=== PATIENT | female | born 1995 | race Caucasian/White ===

== ENCOUNTER 2018-03-15 19:04 | Inpatient (IN) ==
[2018-03-15 20:08] LABS: Baso # (Auto) 0.1 th/mm3 (0.0-0.2); Baso % (Auto) 0.4 % (0.0-2.0); Eos # (Auto) 0.1 th/mm3 (0.0-0.4); Eos % (Auto) 0.6 % (0.0-4.0); Hematocrit 31.9 % (35.0-46.0); Hemoglobin 10.6 gm/dL (11.6-15.3); Lymph # (Auto) 2.3 th/mm3 (1.0-4.8); Lymph % (Auto) 18.6 % (9.0-44.0); Mean Corpuscular HGB Conc 33.2 % (32.0-36.0); Mean Corpuscular Volume 81.3 fL (80.0-100.0); Mean Platelet Volume 7.6 fL (7.0-11.0); Mono # (Auto) 1.1 th/mm3 (0.0-0.9); Mono % (Auto) 8.9 % (0.0-8.0); Neut # (Auto) 8.8 th/mm3 (1.8-7.7); Neut % (Auto) 71.5 % (16.0-70.0); Platelet Count 297 th/mm3 (150-450); Red Blood Count 3.92 mil/mm3 (4.00-5.30); Red Cell Distribution Width 12.7 % (11.6-17.2); White Blood Count 12.3 th/mm3 (4.0-11.0)
[2018-03-15 20:16] LABS: Amphetamine Urine With Conf Neg (Neg); Benzodiazepine Urine With Conf Neg (Neg)
[2018-03-15 20:20] LABS: Amorphous Sediment,Urine Rare /hpf; Bacteria,Urine Moderate /hpf; Bilirubin,Urine Negative (Negative); Clarity,Urine Hazy (Clear); Color,Urine Yellow (Yellw/Straw); Glucose,Urine (UA) Negative (Negative); Leukocyte Esterase,Urine Small (Negative); Mucus,Urine Few /lpf (Occasional); Nitrite,Urine Negative (Negative); Squamous Epithelial Cell,Urine 8 /hpf (0-5)
[2018-03-15] MEDS ORDERED: Sod Chloride 0.9% Inj 1,000 ML IV.CONT PRN (20:27)
[2018-03-15] MEDS ORDERED: fentaNYL Citrate Inj 100 MCG/2 ML Ampul IV.PUSH PRN ×2 (20:27)
[2018-03-15] MEDS ORDERED: Sodium Chlor 0.9% Inj 500 ML IV.SIG PRN (20:27)
[2018-03-15] MEDS ORDERED: Oxytocin 30 Units/500ml Premix 30 UNITS/500 ML BAG IV.SIG ONE (20:27)
[2018-03-15] MEDS ORDERED: Citric Acid/Sodium Citrate Liq 30 ML UDC PO SCH (20:30)
[2018-03-15] MEDS ORDERED: Sod Chloride 0.9% Inj 1,000 ML IRRIGATION SCH (20:30)
[2018-03-16] MEDS ORDERED: Oxytocin 30 Units/500ml Premix 30 UNITS/500 ML BAG IV.SIG PRN (01:52)
[2018-03-16] MEDS ORDERED: fentaNYL 2MCG-Bupiv 0.125% Epi 150 ML EPIDURAL ONE (07:55)
[2018-03-16] MEDS ORDERED: Lidocaine PF 1% Inj 5 ML Vial ONE (07:56)
[2018-03-16] MEDS ORDERED: Lidocaaine 1.5%/Epinephrine 1:200,000 PF Inj 5 ML Amp ONE (07:56)
--- NOTE | 2018-03-16 08:06 | P.OBLABOR ---
Subjective Interval history: pt on pit 4 Objective Vital Signs: Vital Signs - 8 hr 03/16/18 00:57 03/16/18 01:55 03/16/18 03:05 Temperature 97.4 F L 97.8 F Pulse Rate 108 H 70 86 Respiratory Rate 18 Blood Pressure 106/83 109/72 03/16/18 03:15 03/16/18 03:30 03/16/18 04:01 Temperature Pulse Rate 102 H 101 H Respiratory Rate 18 Blood Pressure 126/82 92/78 L 03/16/18 04:30 03/16/18 05:01 03/16/18 05:30 Temperature Pulse Rate 65 71 76 Respiratory Rate Blood Pressure 107/56 L 106/47 L 118/69 03/16/18 06:03 03/16/18 06:30 03/16/18 07:01 Temperature Pulse Rate 74 91 H 88 Respiratory Rate 18 Blood Pressure 114/59 L 116/68 118/66 03/16/18 07:15 Temperature 98.3 F Pulse Rate 76 Respiratory Rate 20 Blood Pressure 106/60 Objective: Pelvic Exam: Cervix: [-] Dilatation: [-] 3 Effacement: [-] 50 Station: [-] -1 Presentation: [-] Membranes: [intact or ruptured] arom clear Uterine Contractions: [-] q3-4 FHT's: Category: [-] 1 Baseline: [-] Reactive: [-] R Variability: [-] Decels: [-] Weeks Gestation: 39 Patient Started Active Labor: Yes Active Labor Start Date: 03/16/18 Active Labor Start Time: 08:03 Medical Induction of Labor: Yes Medical Induction Start Date: 03/15/18 Medical Induction Start Time: 21:00 Artificial Rupture of Membrane: Yes Artificial ROM Date: 03/16/18 Artificial ROM Time: 08:04 Assessment and Plan - Diagnosis (1) Code(s): Z34.90 - Encounter for supervision of normal , unspecified, unspecified trimester Status: Acute - Plan IUP at 39 2/7 LGA s/p cervidil on pit, arom GBS neg, for epid anticipate Discharge Planning: day 1-2 PP - Attending Attestation pt seen by me
--- NOTE | 2018-03-16 09:19 | MH ---
cc: Hanna Baugh MD DATE OF ADMISSION: 03/15/2018 HISTORY OF PRESENT ILLNESS: She is 22 years old, 2, para 1; intrauterine at 39 weeks and 2 days, admitted for suspected large for gestational age, induction of labor. care has been with [facility], uncomplicated. GBS was negative; GCT was normal. PAST OBSTETRICAL HISTORY: She has a history of one vaginal delivery in 2014; 7 pounds 12 ounces. PAST GYNECOLOGIC HISTORY: She had HPV in 2009. Pap smear was negative in September 2017. PAST MEDICAL HISTORY: She denies hypertension, diabetes or asthma. She has a history of hypothyroidism and is on no medication. PAST SURGICAL HISTORY: She denies. SOCIAL HISTORY: She denies toxic habits. MEDICATIONS: She takes vitamin. ALLERGIES: SHE HAS NO KNOWN DRUG ALLERGIES. PHYSICAL EXAMINATION: VITAL SIGNS: Stable. She is afebrile. Blood pressure 114/60. She is 182 pounds. HEAD, HEART, CHEST, LUNG: Within normal limits. ABDOMEN: Soft, nontender, gravid. PELVIC: She is 1, 50, -1. EXTREMITIES: No edema, cyanosis, or clubbing. ASSESSMENT AND PLAN: She is 22 years old, 2, para 1; intrauterine at 39 weeks 2 days, admitted for set Cervidil induction. She is nonimmune to rubella and varicella. MD JAYY Johnson/diana , 08:45 AM , 08:51 AM
[2018-03-16] MEDS ORDERED: fentaNYL 2MCG-Bupiv 0.125% Epi 150 ML EPIDURAL PRN (09:42)
[2018-03-16] MEDS ORDERED: fentaNYL Citrate Inj 100 MCG/2 ML Ampul EPIDURAL ONE (09:42)
--- NOTE | 2018-03-16 14:34 | P.OBDELI ---
Weeks Gestation: 39 Patient Started Active Labor: Yes Active Labor Start Date: 03/16/18 Active Labor Start Time: 07:30 Medical Induction of Labor: Yes Medical Induction Start Date: 03/15/18 Medical Induction Start Time: 21:00 Artificial Rupture of Membrane: Yes Artificial ROM Date: 03/16/18 Artificial ROM Time: 07:30 Anesthesia: Epidural Episiotomy: none Vaginal Delivery: Normal Presentation: Occiput anterior, Compound Nuchal Cord: None Delayed Cord Clamping (45 sec): Yes Placenta: Spontaneous delivery Laceration: 1 deg Repair: Chromic interrupted Estimated blood loss (mL): 250 Infant: Female
[2018-03-16] MEDS ORDERED: Witch Hazel 50%/Glyderin 12.5% 40 Pad Jar RECTAL PRN (14:35)
[2018-03-16] MEDS ORDERED: Benzocaine 20% Top Spray 60 ML Can TOPICAL PRN (14:35)
[2018-03-16] MEDS ORDERED: Oxytocin 30 Units/500ml Premix 30 UNITS/500 ML BAG IV.CONT PRN (14:35)
[2018-03-16] MEDS ORDERED: Bisacodyl 10 MG Supp RECTAL PRN (14:35)
[2018-03-16] MEDS ORDERED: Acetaminophen 325 MG Tablet PO PRN (14:35)
[2018-03-16] MEDS ORDERED: Naloxone Inj 0.4 MG/ML Vial IV.PUSH PRN (14:35)
[2018-03-16] MEDS ORDERED: Zolpidem Tartrate 5 MG Tablet PO PRN (14:35)
[2018-03-16] MEDS ORDERED: Diphtheria/Tetanus/Pertussis Vaccine Inj 0.5 ML Syringe IM ONE (16:00)
[2018-03-16] MEDS ORDERED: Measles/Mumps/Rubella Vaccine Inj 0.5 ML Vial SQ ONE (16:00)
[2018-03-17] MEDS: Prenatal Vit/Ca/Iron/Folic Acid Tablet PO SCH (09:02)
[2018-03-17] MEDS: Senna/Docusate Sodium 8.6/50 MG Tablet PO SCH ×2 (09:04→21:56)
--- NOTE | 2018-03-17 09:47 | P.PNOB ---
Subjective Post day: 1 Interval history: doing well, no complaints, Objective Vital Signs/I&O: Vital Signs 03/16/18 09:55 03/16/18 10:01 03/16/18 10:25 Temperature Pulse Rate 90 91 H 83 Respiratory Rate Blood Pressure 99/50 L 103/54 L 115/66 03/16/18 11:00 03/16/18 11:25 03/16/18 11:31 Temperature 98.4 F Pulse Rate 92 H 76 87 Respiratory Rate 16 Blood Pressure 86/54 L 116/60 118/60 03/16/18 11:55 03/16/18 11:57 03/16/18 12:35 Temperature 98.0 F Pulse Rate 73 95 H Respiratory Rate 18 Blood Pressure 112/62 116/73 03/16/18 12:55 03/16/18 13:00 03/16/18 13:35 Temperature 98.1 F Pulse Rate 80 95 H 97 H Respiratory Rate 16 Blood Pressure 116/56 L 123/71 116/61 03/16/18 13:55 03/16/18 14:00 03/16/18 14:33 Temperature 97.9 F Pulse Rate 91 H 103 H Respiratory Rate 18 Blood Pressure 130/71 121/73 03/16/18 14:35 03/16/18 14:45 03/16/18 15:00 Temperature 98.1 F Pulse Rate 95 H 96 H Respiratory Rate 20 20 16 Blood Pressure 116/62 116/75 03/16/18 15:16 03/16/18 15:30 03/16/18 15:46 Temperature Pulse Rate 89 86 79 Respiratory Rate 18 18 16 Blood Pressure 99/63 L 116/67 113/63 03/16/18 16:00 03/16/18 16:50 03/16/18 20:00 Temperature 97.7 F 97.5 F L Pulse Rate 89 84 79 Respiratory Rate 16 20 18 Blood Pressure 122/76 107/67 109/66 03/17/18 08:00 Temperature 97.8 F Pulse Rate 76 Respiratory Rate 18 Blood Pressure 113/78 Intake & Output 03/16/18 03/17/18 03/17/18 18:59 06:59 18:59 Intake Total 1000 / 1000 Balance 1000 / 1000 Intake: IV 1000 / 1000 LR 1000 mL Inj 1,000 ML @ 125 1000 / 1000 mls/hr IV.CONT .Q8H [facility] Rx#: [id number] Result Diagrams: 03/15/18 19:48 Objective Remarks: GENERAL: Well-nourished, well-developed patient. CARDIOVASCULAR: Regular rate and rhythm without murmurs, gallops, or rubs. RESPIRATORY: Breath sounds equal bilaterally. No accessory muscle use. ABDOMEN/GI: Abdomen soft, non-tender. Fundus: Firm, non-tender at umbilicus. GENITOURINARY: Light to moderate bleeding. EXTREMITIES: No cyanosis or edema, non-tender, without signs of DVT. Medications and IVs: Active Medications Acetaminophen (Tylenol) 650 mg PO Q4H PRN PRN Reason: PAIN SCALE 1 TO 2 Al Hydroxide/Mg Hydroxide (Milk Of Magnesia Liq) 30 ml PO Q12H PRN PRN Reason: Mild Constipation Benzocaine (Americaine 20% Top [place]) 1 spray TOPICAL Q4H PRN PRN Reason: For Perineum Discomfort Bisacodyl (Dulcolax Supp) 10 mg RECTAL DAILY PRN PRN Reason: SEVERE CONSITIPATION Citric Acid/Sodium Citrate (Sodium Citrate/Citric Acid Liq) 30 ml PO [employer] [facility] Stop: 03/19/18 20:29 Last Admin: 03/16/18 03:22 Dose: 30 ml Fentanyl Citrate (Fentanyl Inj) 50 mcg IV.PUSH Q1H PRN PRN Reason: Pain Scale 3 - 5 Fentanyl Citrate (Fentanyl Inj) 100 mcg IV.PUSH Q1H PRN PRN Reason: PAIN SCALE 6 TO 10 Last Admin: 03/16/18 04:19 Dose: 100 mcg Lactated Ringer's (Lr 1000 Ml Inj) 1,000 mls @ 125 mls/hr IV.CONT .Q8H [facility] Last Admin: 03/16/18 14:59 Dose: Not Given Lactated Ringer's (Lr 1000 Ml Inj) 1,000 mls @ 125 mls/hr IV.CONT .Q8H [facility] Last Admin: 03/16/18 15:01 Dose: 125 mls/hr Lactated Ringer's (Lr 1000 Ml Inj) 1,000 mls @ 3,000 mls/hr IV.SIG UNSCH PRN PRN Reason: compromise or epidural Last Admin: 03/16/18 07:35 Dose: 3,000 mls/hr Sodium Chloride (Ns Inj) 500 mls @ 1,000 mls/hr IV.SIG UNSCH PRN PRN Reason: SEE LABEL COMMENTS Sodium Chloride (Ns Inj) 1,000 mls @ 100 mls/hr IV.CONT .Q10H PRN PRN Reason: SEE LABEL COMMENTS Oxytocin (Pitocin 30 Units/Ns 500 Ml Premix) 30 units in 500 mls @ 1 mls/hr IV.SIG TITRATE PRN; Protocol PRN Reason: For induction of labor Last Admin: 03/16/18 03:16 Dose: 1 milliunit/min, 1 mls/hr Fentanyl/Bupivacaine/Sodium Chlor (Fentanyl 2 Mcg-Bupiv 0.125% Epi) 150 mls @ 11 mls/hr EPIDURAL PRN PRN PRN Reason: for Labor Pain Oxytocin (Pitocin 30 Units/Ns 500 Ml Premix) 30 units in 500 mls @ 100 mls/hr IV.CONT UNSCH PRN PRN Reason: Heavy bleeding Ibuprofen (Motrin) 800 mg PO Q8H PRN PRN Reason: For Cramping Last Admin: 03/17/18 09:02 Dose: 800 mg Lactulose (Lactulose Liq) 30 ml PO DAILY PRN PRN Reason: SEVERE CONSITIPATION Lidocaine HCl (Xylocaine 1% Inj) 0.1 ml I-DERMAL PRN PRN PRN Reason: For IV start Stop: 03/18/18 20:26 Lidocaine HCl (Xylocaine 1% Inj) 10 ml INFILTRATN PRN PRN PRN Reason: For episiotomy repair Stop: 03/17/18 20:26 Mineral Oil (Muri-Lube Oil) 10 ml TOPICAL PRN PRN PRN Reason: PRN perineal massage Naloxone HCl (Narcan Inj) 0.1 mg IV.PUSH Q2M PRN PRN Reason: for opiate reversal Ondansetron HCl (Zofran Inj) 4 mg IV.PUSH Q6H PRN PRN Reason: NAUSEA OR VOMITING Last Admin: 03/16/18 00:45 Dose: 4 mg Ondansetron HCl (Zofran Odt) 4 mg PO Q6H PRN PRN Reason: NAUSEA OR VOMITING Vit/Calcium/Iron/Folic Ac (Stuartnatal Plus 3) 1 tab PO DAILY TIARRA Last Admin: 03/17/18 09:02 Dose: 1 tab Senna/Docusate Sodium (Daphney-Colace) 1 tab PO BID [facility] Last Admin: 03/17/18 09:04 Dose: 1 tab Sennosides (Senokot) 17.2 mg PO Q12H PRN PRN Reason: Moderate Constipation Sodium Chloride (Ns Flush) 2 ml IV.FLUSH PRN PRN PRN Reason: FLUSH AFTER USING IV ACCESS Sodium Chloride (Ns Flush) 2 ml IV.FLUSH BID TI[facility] Witch Angelica/Glycerin (Tucks Pads) 1 applicatio RECTAL QID PRN PRN Reason: HEMORRHOIDS Zolpidem Tartrate (Ambien) 5 mg PO HS PRN PRN Reason: SLEEP Assessment and Plan - Diagnosis (1) Code(s): Z34.90 - Encounter for supervision of normal , unspecified, unspecified trimester Status: Acute (2) Vaginal delivery Code(s): O80 - Encounter for full-term uncomplicated delivery Status: Acute - Plan s/p , PPD #1 d/c home in am Discharge Planning: day 1-2 PP - Attending Attestation pt seen by me
[2018-03-18 07:44] VITALS: BP 110/67; PULSE 69; RESP 16; TEMP 98.2
[2018-03-18] MEDS: Prenatal Vit/Ca/Iron/Folic Acid Tablet PO SCH (09:09)
[2018-03-18] MEDS: Senna/Docusate Sodium 8.6/50 MG Tablet PO SCH (09:10)
--- NOTE | 2018-03-18 10:01 | P.PNOB ---
Subjective Post day: 2 Interval history: doing well, ready for discharge Objective Vital Signs/I&O: Vital Signs 03/17/18 20:00 03/18/18 07:25 Temperature 98.0 F 98.2 F Pulse Rate 70 69 Respiratory Rate 18 16 Blood Pressure 107/71 110/67 Result Diagrams: 03/15/18 19:48 Objective Remarks: GENERAL: Well-nourished, well-developed patient. CARDIOVASCULAR: Regular rate and rhythm without murmurs, gallops, or rubs. RESPIRATORY: Breath sounds equal bilaterally. No accessory muscle use. ABDOMEN/GI: Abdomen soft, non-tender. Fundus: Firm, non-tender at umbilicus. GENITOURINARY: Light to moderate bleeding. EXTREMITIES: No cyanosis or edema, non-tender, without signs of DVT. Medications and IVs: Active Medications Acetaminophen (Tylenol) 650 mg PO Q4H PRN PRN Reason: PAIN SCALE 1 TO 2 Al Hydroxide/Mg Hydroxide (Milk Of Magnesia Liq) 30 ml PO Q12H PRN PRN Reason: Mild Constipation Benzocaine (Americaine 20% Top [place]) 1 spray TOPICAL Q4H PRN PRN Reason: For Perineum Discomfort Bisacodyl (Dulcolax Supp) 10 mg RECTAL DAILY PRN PRN Reason: SEVERE CONSITIPATION Citric Acid/Sodium Citrate (Sodium Citrate/Citric Acid Liq) 30 ml PO [employer] [facility] Stop: 03/19/18 20:29 Last Admin: 03/16/18 03:22 Dose: 30 ml Fentanyl Citrate (Fentanyl Inj) 50 mcg IV.PUSH Q1H PRN PRN Reason: Pain Scale 3 - 5 Fentanyl Citrate (Fentanyl Inj) 100 mcg IV.PUSH Q1H PRN PRN Reason: PAIN SCALE 6 TO 10 Last Admin: 03/16/18 04:19 Dose: 100 mcg Lactated Ringer's (Lr 1000 Ml Inj) 1,000 mls @ 125 mls/hr IV.CONT .Q8H [facility] Last Admin: 03/16/18 14:59 Dose: Not Given Lactated Ringer's (Lr 1000 Ml Inj) 1,000 mls @ 125 mls/hr IV.CONT .Q8H [facility] Last Admin: 03/16/18 15:01 Dose: 125 mls/hr Lactated Ringer's (Lr 1000 Ml Inj) 1,000 mls @ 3,000 mls/hr IV.SIG UNSCH PRN PRN Reason: compromise or epidural Last Admin: 03/16/18 07:35 Dose: 3,000 mls/hr Sodium Chloride (Ns Inj) 500 mls @ 1,000 mls/hr IV.SIG UNSCH PRN PRN Reason: SEE LABEL COMMENTS Sodium Chloride (Ns Inj) 1,000 mls @ 100 mls/hr IV.CONT .Q10H PRN PRN Reason: SEE LABEL COMMENTS Oxytocin (Pitocin 30 Units/Ns 500 Ml Premix) 30 units in 500 mls @ 1 mls/hr IV.SIG TITRATE PRN; Protocol PRN Reason: For induction of labor Last Admin: 03/16/18 03:16 Dose: 1 milliunit/min, 1 mls/hr Fentanyl/Bupivacaine/Sodium Chlor (Fentanyl 2 Mcg-Bupiv 0.125% Epi) 150 mls @ 11 mls/hr EPIDURAL PRN PRN PRN Reason: for Labor Pain Oxytocin (Pitocin 30 Units/Ns 500 Ml Premix) 30 units in 500 mls @ 100 mls/hr IV.CONT UNSCH PRN PRN Reason: Heavy bleeding Ibuprofen (Motrin) 800 mg PO Q8H PRN PRN Reason: For Cramping Last Admin: 03/18/18 03:12 Dose: 800 mg Lactulose (Lactulose Liq) 30 ml PO DAILY PRN PRN Reason: SEVERE CONSITIPATION Lidocaine HCl (Xylocaine 1% Inj) 0.1 ml I-DERMAL PRN PRN PRN Reason: For IV start Stop: 03/18/18 20:26 Mineral Oil (Muri-Lube Oil) 10 ml TOPICAL PRN PRN PRN Reason: PRN perineal massage Naloxone HCl (Narcan Inj) 0.1 mg IV.PUSH Q2M PRN PRN Reason: for opiate reversal Ondansetron HCl (Zofran Inj) 4 mg IV.PUSH Q6H PRN PRN Reason: NAUSEA OR VOMITING Last Admin: 03/16/18 00:45 Dose: 4 mg Ondansetron HCl (Zofran Odt) 4 mg PO Q6H PRN PRN Reason: NAUSEA OR VOMITING Vit/Calcium/Iron/Folic Ac (Stuartnatal Plus 3) 1 tab PO DAILY TIARRA Last Admin: 03/18/18 09:09 Dose: 1 tab Senna/Docusate Sodium (Daphney-Colace) 1 tab PO BID [facility] Last Admin: 03/18/18 09:10 Dose: 1 tab Sennosides (Senokot) 17.2 mg PO Q12H PRN PRN Reason: Moderate Constipation Sodium Chloride (Ns Flush) 2 ml IV.FLUSH PRN PRN PRN Reason: FLUSH AFTER USING IV ACCESS Sodium Chloride (Ns Flush) 2 ml IV.FLUSH BID [facility] Last Admin: 03/18/18 08:30 Dose: Not Given Witch Angelica/Glycerin (Tucks Pads) 1 applicatio RECTAL QID PRN PRN Reason: HEMORRHOIDS Zolpidem Tartrate (Ambien) 5 mg PO HS PRN PRN Reason: SLEEP Assessment and Plan - Diagnosis (1) Code(s): Z34.90 - Encounter for supervision of normal , unspecified, unspecified trimester Status: Acute (2) Vaginal delivery Code(s): O80 - Encounter for full-term uncomplicated delivery Status: Acute - Plan s/p , PPD #2, female d/c home today Discharge Planning: day 1-2 PP - Attending Attestation pt seen by me
== END 2018-03-18 14:46 | disposition home or self-care (01) ==
LOC: H2E 19:04 → H1EA 03-16 16:39
PROVIDERS: ADMIT Obstetrics & Gynecology; ATTEND Obstetrics & Gynecology